=== PATIENT | male | born 1990 | race Caucasian/White ===

== ENCOUNTER 2018-06-26 23:04 | Emergency (ER) | payer OTHER ==
[2018-06-26 23:40] VITALS: BP 158/92; PULSE 89; TEMP 98.3; BMI 40.0
--- NOTE | 2018-06-27 00:09 | PDOC ---
History of Present Illness - General Chief Complaint: Sore Throat Stated Complaint: SORE THROAT Time Seen by Provider: 06/27/18 00:06 History Source: Patient Exam Limitations: No Limitations - History of Present Illness Initial Comments: 06/27/18 00:06 Best Contact: PCP: None Pmhx:0 Pshx:0 Allergies:NKDA FH: Social Hx: Cigarettes/ 0 Alcohol/ Social Drugs/0 28-year-old male presents to the ER complaining of a sore throat 3 days without fever, chills, nausea/vomiting, dizziness, lightheadedness, headache, difficulty swallowing, nasal congestion, rhinorrhea, earache, neck pain/ stiffness, back pains, chest pain, shortness of breath, abdominal pains. Patient states he took Chloraseptic and DayQuil, Motrin with some relief. Past History - Past Medical History Allergies/Adverse Reactions: Allergies Allergy/AdvReac Type Severity Reaction Status Date / Time No Known Allergies Allergy Verified 04/06/16 03:38 Home Medications: Ambulatory Orders NK [No Known Home Medication] 04/06/16 - Immunization History Immunization Up to Date: No - Suicide/Smoking/Psychosocial Hx Smoking History: Unknown if ever smoked Have you smoked in the past 12 months: No Number of Cigarettes Smoked Daily: 0 Cigars Per Day: 0 Hx Alcohol Use: No Drug/Substance Use Hx: No Review of Systems - Review of Systems Able to Perform ROS?: Yes Comments:: 06/27/18 00:08 CONSTITUTIONAL: Absent: fever, chills, diaphoresis, generalized weakness, malaise, loss of appetite HEENT: +throat soreness Absent: rhinorrhea, nasal congestion, throat swelling, difficulty swallowing, mouth swelling, ear pain, eye pain, visual Changes SKIN: Absent: rash, itching, pallor Is the patient limited Tajik proficient: No *Physical Exam - Vital Signs Last Vital Signs Temp Pulse Resp BP Pulse Ox 98.3 F 89 20 158/92 99 06/26/18 23:36 06/26/18 23:36 06/26/18 23:36 06/26/18 23:36 06/26/18 23:36 - Physical Exam Comments: 06/27/18 00:08 GENERAL: Well developed, well nourished. Awake and alert. No acute distress. HEENT: Normocephalic, atraumatic. PERRLA, EOMI. No conjunctival pallor. Sclera are non- icteric. Moist mucous membranes. Oropharynx is clear. NECK: Supple. Full ROM. No JVD. Carotid pulses 2+ and symmetric, without bruits. No thyromegaly. No lymphadenopathy. CARDIOVASCULAR: Regular rate and rhythm. No murmurs, rubs, or gallops. Distal pulses are 2+ and symmetric. PULMONARY: No evidence of respiratory distress. Lungs clear to auscultation bilaterally. No wheezing, rales or rhonchi. ABDOMINAL: Soft. Non-tender. Non-distended. No rebound or guarding. No organomegaly. Normoactive bowel sounds. SKIN: Warm and dry. Normal capillary refill. No rashes. No jaundice. Moderate Sedation - Procedure Monitoring Vital Signs: Procedure Monitoring Vital Signs Temperature 98.3 F 06/26/18 23:36 Pulse Rate 89 06/26/18 23:36 Respiratory Rate 20 06/26/18 23:36 Blood Pressure 158/92 06/26/18 23:36 O2 Sat by Pulse Oximetry (%) 99 06/26/18 23:36 *DC/Admit/Observation/Transfer Diagnosis at time of Disposition: Pharyngitis Qualifiers: Pharyngitis/tonsillitis etiology: unspecified etiology Qualified Code(s): J02.9 - Acute pharyngitis, unspecified - Discharge Dispostion Disposition: HOME Condition at time of disposition: Stable Decision to Admit order: No - Referrals Referrals: Orlando Farmer MD [Staff Physician] - - Patient Instructions Printed Discharge Instructions: DI for Viral Pharyngitis Additional Instructions: Gargle with salt water Increase fluids Take Tylenol or Motrin every 6 hours as needed for pain Follow-up with the ENT surgeon listed on your discharge this week Return back to the ER for severe/persistent or worsening symptoms - Post Discharge Activity
== END 2018-06-27 00:33 | disposition home or self-care (01) ==
LOC: JER 23:04
DX: J02.9 Acute pharyngitis, unspecified (principal)
CPT/HCPCS: 87070; 87880; 99281-25

== ENCOUNTER 2018-07-04 03:50 | Emergency (ER) | payer OTHER ==
[2018-07-04 03:58] VITALS: BP 136/94; PULSE 98; TEMP 98.3; BMI 30.7
--- NOTE | 2018-07-04 04:00 | PDOC ---
History of Present Illness - General Chief Complaint: Back Pain Stated Complaint: BACK PAIN Time Seen by Provider: 07/04/18 04:00 History Source: Patient Exam Limitations: No Limitations - History of Present Illness Initial Comments: 07/04/18 04:31 28 yo M with no past medical history presents to the emergency department with left flank pain that has been ongoing since 2 am. Per the patient, he states the pain was sudden onset, awoke him from sleep, 10/10, sharp burning pain, without relief with motrin, and no aggravating factors. The pain is constant. Per the patient, he had 1x N/V episode without blood after onset of pain. He endorses the following: fevers. Denies the following: chills, SOB, hematochezia , dysuria, hematuria, diarrhea, and leg pain/swelling. Denies hx of nephrolithiasis. Of note, the patient returned from a trip from the where he drank bottled water. Allergies: NKDA Meds: None Past History - Past Medical History Allergies/Adverse Reactions: Allergies Allergy/AdvReac Type Severity Reaction Status Date / Time No Known Allergies Allergy Verified 07/04/18 03:55 Home Medications: Ambulatory Orders Naproxen 500 mg PO BID PRN #20 tablet 07/04/18 COPD: No - Immunization History Immunization Up to Date: Yes - Suicide/Smoking/Psychosocial Hx Smoking History: Never smoked Have you smoked in the past 12 months: No Number of Cigarettes Smoked Daily: 0 Cigars Per Day: 0 Information on smoking cessation initiated: No Hx Alcohol Use: No Drug/Substance Use Hx: No Review of Systems - Review of Systems Able to Perform ROS?: Yes Is the patient limited Wolof proficient: No Constitutional: Yes: Fever. No: Chills, Diaphoresis, Weakness HEENTM: No: Blurred Vision, Recent change in vision, Ear Pain, Nose Pain, Throat Pain, Mouth Pain Respiratory: No: Cough, Shortness of Breath, Hemoptysis Cardiac (ROS): No: Chest Pain, Lightheadedness, Palpitations, Syncope, Chest Tightness ABD/GI: Yes: Nausea. No: Constipated, Diarrhea, Poor Appetite, Poor Fluid Intake, Rectal Bleeding, Vomiting, Tarry Stools : No: Burning, Dysuria, Discharge, Hematuria, Incontinence, Urgency Musculoskeletal: Yes: Back Pain (CVA tendernes on left). No: Joint Pain, Neck Pain Integumentary: No: Bruising, Erythema, Rash Neurological: No: Headache, Numbness, Tingling, Tremors, Ataxia, Dizziness Psychiatric: No: Change in Appetite Endocrine: No: Unexplained Weight Gain Hematologic/Lymphatic: No: Anemia *Physical Exam - Vital Signs Last Vital Signs Temp Pulse Resp BP Pulse Ox 98.3 F 98 H 20 136/94 99 07/04/18 03:55 07/04/18 03:55 07/04/18 03:55 07/04/18 03:55 07/04/18 03:55 - Physical Exam General Appearance: Yes: Nourished, Appropriately Dressed. No: Apparent Distress, Intoxicated HEENT: positive: EOMI, JERICA, Normal Voice, Symmetrical, Pharynx Normal, Hearing Grossly Normal. negative: Pale Conjunctivae, Scleral Icterus (R), Scleral Icterus (L), Muffled/Hoarse voice, Pharyngeal Erythema, Tonsillar Exudate, Tonsillar Erythema, Nasal Congestion, Rhinorrhea, Excessive drooling Neck: positive: Trachea midline, Supple. negative: Tender, Lymphadenopathy (R) , Lymphadenopathy (L), Tender lateral, Tender midline Respiratory/Chest: positive: Lungs Clear, Normal Breath Sounds. negative: Chest Tender, Respiratory Distress, Accessory Muscle Use, Crackles, Rales, Rhonchi, Stridor, Wheezing Cardiovascular: positive: Regular Rhythm, Regular Rate, S1, S2. negative: Systolic Murmur Gastrointestinal/Abdominal: positive: Normal Bowel Sounds, Flat, Soft. negative : Tender, Guarding, Rebound Lymphatic: negative: Adenopathy Musculoskeletal: positive: Normal Inspection, CVA Tenderness (L). negative: CVA Tenderness (R), Vertebral Tenderness Extremity: positive: Normal Capillary Refill, Normal Inspection, Normal Range of Motion. 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 negative: EOM Palsy, Facial Droop, Numbness, Sensory Deficit Moderate Sedation - Procedure Monitoring Vital Signs: Procedure Monitoring Vital Signs Temperature 98.3 F 07/04/18 03:55 Pulse Rate 98 H 07/04/18 03:55 Respiratory Rate 20 07/04/18 03:55 Blood Pressure 136/94 07/04/18 03:55 O2 Sat by Pulse Oximetry (%) 99 07/04/18 03:55 ED Treatment Course - LABORATORY CBC & Chemistry Diagram: 07/04/18 04:50 07/04/18 04:41 Medical Decision Making - Medical Decision Making 28 yo M with no past medical history presents to the emergency department with left flank pain that has been ongoing since 2 am. Per the patient, he states the pain was sudden onset, awoke him from sleep, 10/10, sharp burning pain, without relief with motrin, and no aggravating factors. Initial vitals: Initial Vital Signs Temp Pulse Resp BP Pulse Ox 98.3 F 98 H 20 136/94 99 07/04/18 03:55 07/04/18 03:55 07/04/18 03:55 07/04/18 03:55 07/04/18 03:55 Work up: ddx: UTI vs nephrolithiasis vs msk strain vs colitis vs electrolyte abnormality. orders: cbc, cmp, ua, urine culture, spiral renal stone interventions: tylenol, NS, and zofran *DC/Admit/Observation/Transfer Diagnosis at time of Disposition: Nephrolithiasis - Discharge Dispostion Disposition: HOME Decision to Admit order: No - Prescriptions Prescriptions: Naproxen 500 mg PO BID PRN #20 tablet PRN Reason: Pain - Referrals Referrals: Kaye Boateng MD [Staff Physician] - - Patient Instructions Printed Discharge Instructions: DI for Kidney Stones Additional Instructions: you were seen for your left flank pain. please follow up with urology in one week after discharge for follow up care and management if the stone does not pass. please return to the emergency department if you have worsening pain or new concerning symptoms such as fevers, chills, pain with urination, and blood in the urine. thank you. please take the medication as prescribed. - Post Discharge Activity
[2018-07-04] MEDS ORDERED: SODIUM CHLORIDE 1,000 ML IV STA (04:19)
[2018-07-04] MEDS ORDERED: ACETAMINOPHEN 1000 MG/100 ML VIAL (NON FORMULARY) IVPB ONE (04:19)
[2018-07-04] MEDS ORDERED: ACETAMINOPHEN INJECTION 100 ML IVPB ONE (04:28)
[2018-07-04 04:40] LABS: EPI CELLS 4.2 /HPF (0-5); HYALINE CASTS 3 /hpf (0-8); PH,URINE 5.5 (5.0-8.0); URINE APPEARANCE CLOUDY; URINE BACTERIA 22.68 /hpf (NEGATIVE); URINE BILIRUBIN NEGATIVE (<2.0 mg/dL); URINE COLOR ORANGE; URINE GLUCOSE (UA) NEGATIVE (NEGATIVE); URINE KETONE TRACE (NEGATIVE); URINE LEUK ESTERASE 1+ (NEGATIVE); URINE NITRITE NEGATIVE (NEGATIVE); URINE PROTEIN 1+ (NEGATIVE); URINE RBC 778 /hpf (0-4); URINE WBC 9 /hpf (0-5)
[2018-07-04] MEDS ORDERED: ONDANSETRON 4 MG/2 ML VIAL IVPUSH ONE (04:52)
--- NOTE | 2018-07-04 04:54 | PDOC ---
Attending Attestation - Resident Resident Name: Enrrique Welch - ED Attending Attestation I have performed the following: I have examined & evaluated the patient, The case was reviewed & discussed with the resident, I agree w/resident's findings & plan, Exceptions are as noted - HPI HPI: 07/04/18 04:53 28 M with no PMH presents to ED with L flank pain that woke him from sleep. Pt reports 10/10 pain in his L flank radiating to his side. Endorses one episode of vomiting. Denies F/C. Denies dysuria. Never had this pain before. No h/o kidney stones. Pt states that the pain seems to come in waves. Denies abdominal pain. Denies diarrhea. - Physicial Exam PE: 07/04/18 04:54 GENERAL: Awake, alert, and fully oriented, in no acute distress. HEAD: No signs of trauma EYES: PERRLA, EOMI, sclera anicteric, conjunctiva clear ENT: Auricles normal inspection, hearing grossly normal, nares patent, oropharynx clear without exudates. Moist mucosa NECK: Nontender, no stepoffs, Normal ROM, supple, no lymphadenopathy, JVD, or masses LUNGS: Breath sounds equal, clear to auscultation bilaterally. No wheezes, and no crackles HEART: Regular rate and rhythm, normal S1 and S2, no murmurs, rubs or gallops ABDOMEN: Soft, nontender, normoactive bowel sounds. No guarding, no rebound. No masses BACK: + L CVAT EXTREMITIES: Normal range of motion, no edema. No clubbing or cyanosis. No cords, erythema, or tenderness NEUROLOGICAL: Cranial nerves II through XII intact. 5/5 strength and sensation in all extremities, Normal speech, normal gait, normal cerebellar function SKIN: Warm, Dry, normal turgor, no rashes or lesions noted. - Medical Decision Making 07/04/18 04:54 28 M with L flank pain. Likely renal colic. - Labs, UA - Spiral CT - IVF, pain control 07/04/18 05:30 UA with + blood CT shows stone at L UVJ Pt reassessed - pain is well controlled at this time Pt is well appearing, with normal vitals. Clinically stable for DC at this time. I discussed the physical exam findings, ancillary test results and final diagnoses with the patient. I answered all of the patient's questions. The patient was satisfied with the care received and felt comfortable with the discharge plan and treatment plan. The patient agrees to follow up with the primary care physician within 24-72 hours.
[2018-07-04 05:05] LABS: BASO % 0.7 % (0-2.0); EOS % 2.1 % (0-4.5); HEMATOCRIT 38.7 % (35.4-49); HEMOGLOBIN 13.6 GM/dL (11.7-16.9); LYMPH % 19.1 % (8-40); MCH 30.6 pg (25.7-33.7); MCHC 35.1 g/dl (32.0-35.9); MEAN CELL VOLUME 87.2 fl (80-96); MEAN PLT VOLUME 7.4 fl (7.5-11.1); MONO % 10.1 % (3.8-10.2); PLATELET COUNT 294 K/MM3 (134-434); RBC 4.43 M/mm3 (4.00-5.60); RDW 13.1 % (11.9-15.9); WHITE BLOOD COUNT 7.6 K/mm3 (4.0-10.0)
[2018-07-04] MEDS ORDERED: ONDANSETRON 4 MG/2 ML VIAL ONE (05:19)
[2018-07-04 05:32] LABS: ALBUMIN 3.8 g/dl (3.4-5.0); ALK PHOS 82 U/L (45-117); ANION GAP 4 MMOL/L (8-16); BILIRUBIN,TOTAL 0.1 mg/dL (0.2-1); BLOOD UREA NITROGEN 13 mg/dL (7-18); CALCIUM 8.6 mg/dL (8.5-10.1); CHLORIDE 106 mmol/L (98-107); CO2 30 mmol/L (21-32); CREATININE 0.9 mg/dL (0.55-1.3); GLUCOSE,RANDOM 103 mg/dL (74-106); POTASSIUM 4.5 mmol/L (3.5-5.1); SGOT/AST 19 U/L (15-37); SGPT/ALT 53 U/L (13-61); SODIUM 141 mmol/L (136-145); TOT PROT 7.8 g/dl (6.4-8.2)
[2018-07-04] MEDS ORDERED: NAPROXEN 500 MG TABLET (FP) ONE (06:20)
== END 2018-07-04 06:33 | disposition home or self-care (01) ==
LOC: JER 03:50
PROC: 3E033NZ Introduction of Analgesics, Hypnotics, Sedatives into Peripheral Vein, Percutaneous Approach (ICD-10-PCS; principal; 2018-07-04)
DX: N20.0 Calculus of kidney (principal)
CPT/HCPCS: 36415; 74176-TC; 80053; 81003; 85025; 87077; 87086; 96374; 99282-25; J0131; J7030